=== PATIENT | female | born 1965 | race Caucasian/White ===

== ENCOUNTER 2016-03-12 11:45 | Emergency (ER) | payer MEDICARE, MEDICAID ==
--- NOTE | 2016-03-12 12:59 | RAD ---
THORACIC DORSAL SPINE 3 VIEW COMPARISON: None. HISTORY: Neck and thoracic spine surgery 8 weeks ago. The patient fell 4 days ago, now with increased pain. Initial encounter. FINDINGS: Views: Thoracic spine AP, lateral, swimmer's lateral. Vertebral alignment: 22 degrees levoscoliosis, T1-T6. 19 degrees dextroscoliosis, T6-T10. 34 degrees thoracic kyphosis, T1-T8. Postoperative change: Interbody fusion with hardware and bone graft material C5-C6. Laminectomies C3, C4, C5, and C6. Posterior hardware instrumentation, C4-T6. No evidence of loosening. Vertebral bodies: No fracture. Degenerative changes. Disc heights: Normal. Pedicles and posterior arches: Normal Paraspinal soft tissues: No paraspinal soft tissue swelling. Surgical clips in the right upper quadrant. Posterior ribs: Normal. IMPRESSION: 1. No fracture. 2. Satisfactory radiographic appearance of the cervical spine and upper thoracic spine after C3-C6 laminectomies, C5-6 interbody fusion, and posterior is dilatation from C4 through T6. No evidence of hardware failure or fracture. 3. T1-T6 23 degrees levoscoliosis. T6-T10 19 degrees dextroscoliosis. Hyper kyphosis of the upper thoracic spine. 4. Multilevel spondylosis of the thoracic spine and the cervical spine.
--- NOTE | 2016-03-12 13:02 | RAD ---
C-SPINE 3 VIEWS OR LESS COMPARISON: None. HISTORY: Spinal surgery 8 weeks ago. Recent fall with pain. Initial encounter. FINDINGS: Views: Cervical spine AP open-mouth, AP, lateral. Alignment: 3 mm anterolisthesis of C2. 8 degrees kyphosis, C3-C5. Vertebral bodies: Interbody fusion with hardware and bone graft material, C5-C6. Anterior osteophytes at the inferior endplate of C4. Mild anterior osteophytes at both endplates of C3. Disc heights: Moderate narrowing, C2-3, C3-4, and C4-5. Moderate narrowing at C6-7. Prevertebral soft tissues: Normal. Facet joints and posterior arches: Normal facet joints. Laminectomies at C4, C5, and C6. Partial laminectomy at C3. Posterior fusion hardware, C4 through the upper thoracic spine. Craniocervical junction: Normal. IMPRESSION: 1. No fracture or dislocation. 2. Postoperative change: C5-6 interbody fusion with hardware and bone graft, C3-C6 laminectomies, posterior hardware fusion C4 through the upper thoracic spine. 3. Spondylosis C2-3, C3-4, C4-5, and C6-7. Degenerative 3 mm anterolisthesis of C2.
== END 2016-03-12 13:33 | disposition home or self-care (01) ==
LOC: ED 11:45
DX: S29.012A Strain of muscle and tendon of back wall of thorax, initial encounter (principal); S16.1XXA Strain of muscle, fascia and tendon at neck level, initial encounter; W00.0XXA Fall on same level due to ice and snow, initial encounter; Y92.9 Unspecified place or not applicable

== ENCOUNTER 2016-05-10 16:01 | Emergency (ER) | payer MEDICARE, MEDICAID ==
[2016-05-10] MEDS ORDERED: IOPAMIDOL 370 (76%) 100 ML VIAL IV ONE (16:02)
[2016-05-10 17:53] LABS: ALB/GLOB RATIO 1.5 (>1.0); ALBUMIN 4.3 gm/dL (3.5-5.7); CALCIUM 9.6 mg/dL (8.6-10.3)
[2016-05-10 17:53] LABS: TROPONIN I < 0.01 ng/ml (0.0-0.06)
--- NOTE | 2016-05-10 17:54 | CT ---
Name: MARY CARMEN METCALF Exam: CT Angiogram of the chest with contrast Comparison: None Clinical History:Chest pain and swelling Procedure: Helical CT using multidetector technique was applied to the chest during rapid intravenous administration of 80 cc Isovue-[id number]. MIP reconstructions were obtained on the CT scanner. Automated dose reduction technique was used to minimize patient radiation dose. Findings: CT angiogram of the chest (contrast enhanced): Heart is nonenlarged. There is no pericardial effusion. Aorta is normal caliber and there is a normal 3 great vessel arrangement. Injection is made via left. Limited views of thyroid gland are normal. There is no suspicious axillary mediastinal or hilar adenopathy. Large airways are clear. There is mild thickening of the esophagus which may be due to underdistention. There is no pulmonary embolus. Lungs are clear. There is no pleural effusion or pneumothorax. In the medial aspect of the left breast, there is a 7 mm well-circumscribed rounded nodule. Follow-up ultrasound and mammography is recommended. There is been prior cholecystectomy. Otherwise, structures below the diaphragm included on this exam are within normal limits. Billy rods extend from the cervical spine to approximately T7. Moderate levoscoliosis is centered approximately T3. Impression: 1. No pulmonary embolus 2. Mild diffuse esophageal thickening which is likely due to underdistention 3. 7 mm well-circumscribed nodule within the medial left breast. Follow-up mammography and ultrasound is recommended. 4. Levoscoliosis centered at T3. There are are extensive postsurgical changes in the upper thoracic spine 5. Prior cholecystectomy Note:The above report was uploaded to [facility]'s electronic medical records system at 1749 hours.
[2016-05-10 17:57] LABS: CKMB ISOENZYME 10.9 ng/ml (0.6-6.3)
[2016-05-10 18:08] LABS: ABSOLUTE NEUTROPHIL COUNT 2.9 K/mm3 (1.8-7.7); BASO % 0.5 % (0.2-1.0); EOS # 0.6 (0.0-0.5); EOS % 10.1 % (0.9-2.9); HEMATOCRIT 37.9 % (37.0-47.0); HEMOGLOBIN 12.1 gm/l (12.0-16.0); IMM NEUT% 0.2 % (0-1); LYMPH % 33.9 % (15-45); MEAN CELL VOLUME 94.3 fl (81.0-99.0); MEAN CORPUSCULAR HEMOGLOBIN 30.1 pg (27.0-31.0); MEAN CORPUSCULAR HGB CONC 31.9 g/dl (33.0-37.0); MEAN PLATELET VOLUME 10.3 fl (7.4-10.4); MONO # 0.3 (0.0-0.8); MONO % 5.3 % (4-12); PLATELET COUNT 271 K/mm3 (130-400); RED CELL DISTRIBUTION WIDTH 12.9 % (11.5-14.5)
--- NOTE | 2016-05-10 19:33 | US ---
Name: MARY CARMEN METCALF Exam: Venous ultrasound left leg Comparison: None Clinical history: Left calf pain and swelling Findings:Deep veins of the left leg were evaluated with ultrasound using real-time, color flow doppler and doppler analysis. Deep veins are compressible. There is no echogenic intraluminal filling defect. Blood flow responds appropriately to respiratory variation and augmentation on color doppler and spectral analysis. Lower leg edema is identified. Extending inferior from the posterior medial margin of the knee, there is a 16.3 x 3.2 x 1.3 cm fluid collection with poor margins. There are a few internal echoes. There is no internal blood flow. Ruptured Plaza cyst could have this appearance. Impression: 1. No ultrasound evidence for DVT left leg 2. 16.3 cm fluid collection extending into the calf from the knee. Ruptured Plaza cyst could have this appearance. Recent trauma with stroma is a consideration as well. Note: The above report was uploaded to [facility]'s electronic medical records system at 1929 hours.
[2016-05-10 20:36] LABS: TROPONIN I < 0.01 ng/ml (0.0-0.06)
[2016-05-10 20:40] LABS: CKMB ISOENZYME 7.9 ng/ml (0.6-6.3)
[2016-05-10] MEDS ORDERED: LORAZEPAM 1 MG TABLET ONE (20:52)
== END 2016-05-10 20:58 | disposition home or self-care (01) ==
LOC: ED 16:01
DX: R07.9 Chest pain, unspecified (principal); N83.202 Unspecified ovarian cyst, left side; I10 Essential (primary) hypertension
CPT/HCPCS: 85025; 82553 ×2; 80053; 84484 ×2; 71275; 99284 ×2; 93005; 93971; A9270; Q9967